=== PATIENT | female | born 1945 | race Two or more races ===

== ENCOUNTER 2020-11-23 19:31 | Emergency (ER) | payer OTHER ==
[~2020-11-23] VITALS: Ht 160 cm; Wt 81.6 kg
[2020-11-23] MEDS ORDERED: HYDROcodone-ACET 5/325MG TAB PO ONE (20:15)
[2020-11-23] MEDS ORDERED: KETOROLAC TROMETH 30 MG/ML 1ML VIAL IM ONE (23:30)
[2020-11-24] VITALS: BP 148/83
== END 2020-11-24 00:30 | disposition home or self-care (01) ==
LOC: EDBD 19:31 → ER 19:33
DX: S32.038A Other fracture of third lumbar vertebra, initial encounter for closed fracture (principal); E11.9 Type 2 diabetes mellitus without complications; Z88.2 Allergy status to sulfonamides; W18.39XA Other fall on same level, initial encounter; Y93.89 Activity, other specified; Y92.89 Other specified places as the place of occurrence of the external cause; Y99.8 Other external cause status
CPT/HCPCS: 72131; 96372; 99284; J1885